=== PATIENT | female | born 2000 | race Caucasian/White ===

== ENCOUNTER 2022-01-25 02:46 | Outpatient (CLI) | payer MEDICAID, SELFPAY ==
[2022-01-25 14:05] LABS: Abs Immature Grans 0.01 10^3/uL (0.0-0.06); Absolute Basophil Count 0.04 10^3/uL (0.0-0.2); Absolute Eosinophil Count 0.22 10^3/uL (0.0-0.7); Absolute Lymphocyte Count 2.09 10^3/uL (1.2-3.4); Absolute Monocyte Count 0.37 10^3/uL (0.1-0.8); Absolute Neutrophil Count 3.57 10^3/uL (1.2-6.7); Basophils % 0.6; Eosinophils % 3.5; HCT 38.4 % (36.0-46.0); Immature Grans % 0.2; Lymphocytes % 33.2; MCH 28.2 pg (27.0-33.0); MCHC 33.9 % (32.0-36.0); MCV 83 fL (80-95); MPV 9.2 fL (8.0-11.0); Monocytes % 5.9; Neutrophils % 56.6; Platelet Count 320 10^3/uL (130-400); RBC 4.61 10^6/uL (3.93-5.22); RDW 12.1 % (11.7-14.6); RDW-SD 36.9 fL
[2022-01-25 15:24] LABS: ALT 15 U/L (14-59); AST 13 U/L (15-37); Albumin 4.1 g/dL (3.4-5.0); Alkaline Phosphatase 71 U/L (46-116); BUN 11 mg/dL (7-18); Bilirubin, Total 0.5 mg/dL (0.2-1.0); C-Reactive Protein 0.13 mg/dL (0.0-0.3); CREATININE 0.8 mg/dL (0.55-1.02); Calcium 9.4 mg/dL (8.5-10.1); Chloride 104 mmol/L (98-107); Glucose 85 mg/dL (74-106); Sodium 139 mmol/L (136-145); TSH (W/Ref FT4) 0.66 uIU/mL (0.52-4.13); Total Protein 7.6 g/dL (6.4-8.2)
[2022-01-25 18:04] LABS: ESR < 1 mm/hr (0-20)
== END 2022-01-25 02:47 | disposition home or self-care (01) ==
LOC: LBO 02:47
PROVIDERS: PCP Nurse Practitioner Pediatrics; Visit Provider Nurse Practitioner Pediatrics
DX: L50.9 Urticaria, unspecified (principal); L65.9 Nonscarring hair loss, unspecified; N94.6 Dysmenorrhea, unspecified
CPT/HCPCS: 36415; 80053; 85652; 84443; 85025; 86140